=== PATIENT | male | born 1945 | race Caucasian/White ===

== ENCOUNTER 2017-07-21 11:18 | Emergency (ER) | payer MEDICARE, OTHER ==
[~2017-07-21] VITALS: Ht 177.8 cm; Wt 90.9 kg
[2017-07-21] MEDS ORDERED: colchicine 0.6mg tablet PO ONE (12:25)
[2017-07-21] MEDS ORDERED: PRED20TA PO (12:58)
[2017-07-21] MEDS ORDERED: HYDR-3965 PO (12:58)
[2017-07-21] MEDS ORDERED: COLC0.6T69 PO (12:58)
[2017-07-21] MEDS ORDERED: predniSONE 20 mg tablet PO ONE (13:00)
[2017-07-21 13:18] VITALS: BP 168/92
== END 2017-07-21 13:17 | disposition home or self-care (01) ==
LOC: ER 11:19
DX: M10.9 Gout, unspecified (principal); M25.572 Pain in left ankle and joints of left foot; Z88.0 Allergy status to penicillin
CPT/HCPCS: 73610; 99284; J7512